=== PATIENT | male | born 1985 | race Caucasian/White ===

== ENCOUNTER 2020-05-05 09:33 | Emergency (ER) | payer MEDICAID, SELFPAY ==
[2020-05-05 09:33] VITALS: BP 152/101; PULSE 85; RESP 16; TEMP 36.6; O2SAT 100; BMI 31.5
--- NOTE | 2020-05-05 09:47 | ED.DCSUM_ITS ---
- ER Visit Summary Date of Service: 05/05/20 Chief Complaint: Facial swelling and dental pain History of Present Illness: The patient is a 34 M who presents with facial swelling and dental pain that became worse since yesterday. Patient states he has been having problems with his right upper molar tooth for the past year. Patient states he was scheduled for a root canal but was unable to have it done. Patient denies any fevers or chills. Patient denies any difficulty swallowing or difficulty breathing. Patient states he attempted to call his dentist today but there was no answer so he came to the emergency department. Physical Examination: Vital signs are stable. Patient is afebrile. Patient is in no acute distress. Oral mucosa is pink and moist. There is a large dental carry noted over the right upper first molar. There is some gingival edema around this tooth. There is some edema of the right maxilla. There is no fluctuance or evidence of any abscess. Neck is supple. Trachea is midline. There is no JVD or lymphadenopathy. There is no sublingual edema or or induration. There is no evidence of José Miguel's angina. Heart was regular rate and rhythm. Lungs are clear and equal bilaterally. Cranial nerves II through XII are intact. There are no focal motor or sensory deficits. Emergency Department Course and Treatment: Patient was given a dose of Pen-Vee K here. Patient was given a prescription for Pen-Vee K. Patient was instructed to take Tylenol or ibuprofen as needed for pain. Patient was instructed to follow-up with his dentist in 5 to 7 days. Patient understood and was agreeable with the plan. All questions were answered. Disposition: Discharge home Impression: Infected dental caries This note was generated with [employer] dictation software. It may contain incorrect words, spelling, and punctuation that were not noted in review of the chart prior to signing ED Disposition - Plan for ED Patient: Disposition: Home or Assisted Living Diagnosis: Infected dental caries Instructions: ED Dental Cavity Prescriptions: Penicillin V Potassium 500 mg PO 4X/DAY #40 tab Prescription Printed Referrals: Dentist,Your [STAFF PHYSICIAN] - 5-7 Days
[2020-05-05] MEDS: Penicillin Vk 250 MG Tablet 500 MG PO (10:01)
== END 2020-05-05 10:02 | disposition home or self-care (01) ==
LOC: ED 10:00
PROVIDERS: Emergency Provider Emergency Medicine
DX: K02.9 Dental caries, unspecified (principal); K04.7 Periapical abscess without sinus; K21.9 Gastro-esophageal reflux disease without esophagitis; Z72.0 Tobacco use
CPT/HCPCS: 99283

== ENCOUNTER 2020-12-02 08:54 | Emergency (ER) | payer MEDICAID, SELFPAY ==
[2020-12-02 08:55] VITALS: BP 160/110; PULSE 85; RESP 14; TEMP 36.9; O2SAT 98; BMI 29.2
--- NOTE | 2020-12-02 09:51 | CT_ITS ---
STUDY: CT BRAIN WITHOUT CONTRAST REASON FOR EXAM: Male, 35 years old. Visual change RADIATION DOSAGE (If Supplied By Facility): CTDIvol = ( 44.99 ) mGy, DLP = ( 779.24 ) mGycm TECHNIQUE: Transaxial CT imaging of the brain was performed without administration of intravenous contrast material. Individualized dose optimization techniques were used for this CT. COMPARISON: No relevant priors. FINDINGS: Normal soft tissue structures. Normal calvarium. Normal size ventricles and extra-axial spaces for the patient''s age. Normal white matter tracts of the cerebral hemispheres. Normal basal ganglia and thalami. Normal brainstem. Normal cerebellum. There is no intracranial hemorrhage. There are no findings of an acute ischemic infarction. Mild mucosal thickening of the maxillary sinuses bilaterally. CT/Brain/Head without Contrast IMPRESSION: Normal unenhanced CT scan of the brain. Electronically Signed: Amado Zuniga MD at 10:24 EDT , Service support ,
--- NOTE | 2020-12-02 09:51 | RAD_ITS ---
STUDY: X-RAY CHEST REASON FOR EXAM: Male, 35 years old. Cough TECHNIQUE: Single AP portable view of the chest. COMPARISON: None. FINDINGS: EKG electrodes are seen. The lungs are clear and expanded. There is no demonstrated pleural abnormality. Normal size heart. Normal mediastinum and emilee. Normal visualized pulmonary arteries. Normal visualized aortic arch and descending thoracic aorta. Normal visualized thoracic spine. Normal visualized ribs, clavicles, and shoulders. There is no demonstrated abnormality of the visualized soft tissue structures of the upper abdomen. RAD/Chest 1 View (Portable) IMPRESSION: Normal x-ray examination of the chest. Electronically Signed: Amado Zuniga MD at 10:26 EDT , Service support ,
--- NOTE | 2020-12-02 09:53 | EKG12_ITS ---
Test Reason : VISION PROB Blood Pressure : / mmHG Vent. Rate : 065 BPM Atrial Rate : 065 BPM P-R Int : 170 ms QRS Dur : 096 ms QT Int : 386 ms P-R-T Axes : 046 048 054 degrees QTc Int : 401 ms Sinus rhythm with marked sinus arrhythmia Otherwise normal ECG When compared with ECG of 12-MAR-2017 12:45, No significant change was found Confirmed by JEANNETTE WEISS, BRITTANY ([id number]), photography editor PRETTY VANEGAS ([id number]) on 12/07/2020 10:19:38 AM Referred By: MARK Confirmed By:BRITTANY MACHADO MD
--- NOTE | 2020-12-02 09:54 | EX.ED.DYSGE1 ---
HPI History of Present Illness Chief Complaint: Vision Prob Informant: patient Onset/Context/Timing Onset: Today Context: Sudden Onset Timing: Intermittent and Lasts (45 minutes) Quality: Blurry, spotty Location: Right peripheral vision Worsened by: Nothing Relieved by: Nothing Narrative Narrative: Patient presents with blurred vision that began today. Patient states the right visual field became blurry while he was at work. Patient states this lasted approximately 45 minutes. Patient states his vision is almost back to normal. Patient states he has some mild blurriness out of his right eye. Patient describes the visual changes as blurry and spotty. Patient states nothing makes it better nothing makes it worse. Patient denies any headaches. Patient does admit to some neck pain. [facility] Medical History (Updated 12/02/20 @ 11:[address] Christo Wolfe DO) Depression Home Medications bupropion HCl 300 mg PO DAILY 12/02/20 [History Last Taken Unknown] Allergy/AdvReac Type Severity Reaction Status Date / Time No Known Allergies Allergy Verified 12/02/20 08:57 Surgical History (Updated 12/02/20 @ 10:[address] Christo Wolfe DO) History of herniorrhaphy Social History Smoking Status: Unknown if ever smoked ROS ROS ED Constitutional Constitutional ED: Denies chills or fever(s) Eyes Eyes: Reports blurry vision; Denies diplopia ENT ENT ED: Denies rhinorrhea or sore throat Cardiovascular Cardiovascular: Denies chest pain or palpitations Respiratory/Chest Respiratory/Chest: Denies cough or dyspnea Gastrointestinal Gastrointestinal: Denies nausea or vomiting Genitourinary Genitourinary ED: Denies dysuria or hematuria Musculoskeletal Musculoskeletal: Reports neck pain; Denies back pain Integumentary Denies abscess or rash Neurologic Neurologic: Denies headache(s) or weakness Allergic/Immunologic Allergic/Immunologic ED: Denies mouth swelling or urticaria EXAM Physical Exam Const Vital Signs: 12/02/20 08:55 Temperature 98.4 F Temperature Source Temporal Pulse Rate 85 Respiratory Rate 14 Blood Pressure 160/110 H Blood Pressure Mean 126 Pulse Ox 98 Oxygen Delivery Method Room Air Positive well nourished and well developed General Appearance ED: well developed HEENT Reports moist mucous membranes Eyes PERRL and EOMs intact bilaterally Neck supple and no JVD Resp normal respiratory effort and clear to auscultation bilaterally Cardio regular rate, regular rhythm and no murmurs GI normal to inspection, nondistended, normoactive bowel sounds and non-tender Palpation: soft Extremity normal to inspection General Extremety ED: Negative for edema or tenderness General Extremity: Negative for edema Neuro oriented x3, CN's II-XII intact bilaterally and no sensory deficits noted [place] Coma Scale: document GCS findings Spontaneous Obeys Commands Oriented 15 Sensorium / Orientation: awake and alert Speech: speech normal Motor Exam: strength 5/5 throughout Psych mental status grossly normal Skin no rashes or lesions noted MDM MDM MDM Narrative Medical decision making narrative: CBC and comprehensive metabolic profile were obtained were within normal limits. PT with INR and PTT were normal. BGT was normal at 91. CT scan of the brain was obtained. There is no acute intracranial abnormality noted. This was interpreted by the radiologist and reviewed by myself. EKG was obtained. On my interpretation, it showed a normal sinus rhythm with a rate of 65. NM interval, QRS interval, and QTc intervals were all normal. Harrell was normal. There are no acute ST or T wave changes. Portable 1 view chest x-ray was obtained. On my interpretation, lung quintanilla are clear. There is normal cardiac silhouette. Bony thorax is normal. There is no acute process noted. Radiologist also interpreted the x-ray and agrees. Patient states his vision has improved. Patient had no further episodes of peripheral vision loss. Patient was advised of his findings. Patient was advised that this could be a TIA. Patient was instructed to follow-up with his primary care physician in 3 to 5 days for further evaluation. Patient understood and was agreeable with the plan. All questions were answered. Lab Data Attestation: I reviewed the patient's lab results. Labs: Laboratory Results - last 24 hr 12/02/20 12/02/20 12/02/20 10:00 10:00 10:00 WBC 5.4 RBC 5.03 Hgb 15.3 Hct 44.2 MCV 87.9 MCH 30.4 MCHC 34.6 RDW Std Deviation 37.5 RDW Coeff of Alfonso 11.7 Plt Count 253 MPV 11.2 Immature Gran % (Auto) 0.200 Neut % (Auto) 57.1 Lymph % (Auto) 22.8 [place] % (Auto) 13.8 H Eos % (Auto) 5.0 Baso % (Auto) 1.1 H Absolute Neuts (auto) 3.1 Absolute Lymphs (auto) 1.22 Nucleated RBC % 0 PT 13.1 INR 1.1 APTT 31.8 Sodium 139 Potassium 3.9 Chloride 107 Carbon Dioxide 28.0 Anion Gap 4 L BUN 11 Creatinine 0.84 Estim Creat Clear Calc 123.91 Est GFR (MDRD) Af Amer 134 Est GFR (MDRD) Non-Af 111 BUN/Creatinine Ratio 13.1 Glucose 100 Calcium 8.7 Total Bilirubin 0.30 AST 21 ALT 49 Alkaline Phosphatase 67 Troponin I High Sens 7 Total Protein 6.9 Albumin 3.8 Globulin 3.1 Albumin/Globulin Ratio 1.2 POC Glucose 12/02/20 10:20 WBC RBC Hgb Hct MCV MCH MCHC RDW Std Deviation RDW Coeff of Alfonso Plt Count MPV Immature Gran % (Auto) Neut % (Auto) Lymph % (Auto) [place] % (Auto) Eos % (Auto) Baso % (Auto) Absolute Neuts (auto) Absolute Lymphs (auto) Nucleated RBC % PT INR APTT Sodium Potassium Chloride Carbon Dioxide Anion Gap BUN Creatinine Estim Creat Clear Calc Est GFR (MDRD) Af Amer Est GFR (MDRD) Non-Af BUN/Creatinine Ratio Glucose Calcium Total Bilirubin AST ALT Alkaline Phosphatase Troponin I High Sens Total Protein Albumin Globulin Albumin/Globulin Ratio POC Glucose 91 Radiography Chest X-Ray - ED: 1 View, Read by ED Physician, Read by Radiologist and Normal Diagnostic Testing: Radiology Impression Brain CT 12/02/20 09:51 IMPRESSION: Normal unenhanced CT scan of the brain. Electronically Signed: Amado Zuniga MD at 10:24 EDT , Service support , Chest X-Ray 12/02/20 09:51 IMPRESSION: Normal x-ray examination of the chest. Electronically Signed: Amado Zuniga MD at 10:26 EDT , Service support , EKG Initial EKG: Attestation: I personally reviewed and interpreted this EKG as follows: Interpretation: Sinus Rhythm (65) and No Acute Injury Pattern Prior EKG tracings: available for review Prior: Unchanged (03/12/2017) Discharge Plan Triage Chief Complaint: Vision Prob ED Provider: Christo Wolfe Dx/Rx/DC Orders Clinical Impression: Brain TIA Instructions: ED TIA: Transient Ischemic Attack Prescriptions: No Action bupropion HCl 300 mg tablet extended release 24 hr 300 mg PO DAILY RF: 0 Primary Care Provider: Care Physician,No Primary Referrals: Fior Young MD [STAFF PHYSICIAN] - 3-5 Days Care Physician,No Primary [Primary Care Provider] - Disposition Disposition: Home, Self Care
[2020-12-02 10:17] LABS: Absolute Lymphocyte Count 1.22 X10^3/uL (0.83-4.51); Absolute Neutrophil Count 3.1 X10^3/uL (2.0-7.7); Basophil# 0.06 X10^3/uL; Basophil% 1.1 % (0-1); Eosinophil# 0.27 X10^3/uL; Hematocrit 44.2 % (40-54); Hemoglobin 15.3 g/dL (13.0-16.5); Lymphocyte # 1.22 X10^3/ul (0.83-4.51); Lymphocyte % 22.8 % (19-41); Mean Corp Hgb Conc 34.6 g/dL (32-36); Mean Corpuscular Hgb 30.4 pg (27.0-32.0); Mean Corpuscular Volume 87.9 fL (80-94); Mean Platelet Vol. 11.2 fl (6.2-12.0); Monocyte# 0.74 X10^3/uL; Monocyte% 13.8 % (0-10); NRBC Flagged by Analyzer 0 % (0-5); Neutrophil # 3.05 X10^3/uL (2.7-7.7); Neutrophil % 57.1 % (47-70); Platelet Count 253 K/mm3 (150-450); RBC Distribution Width CV 11.7 % (11.6-14.6); RBC Distribution Width SD 37.5 fl (35.1-43.9); Red Blood Count 5.03 M/mm3 (4.6-6.2); White Blood Count 5.4 K/mm3 (4.4-11.0)
[2020-12-02 10:25] LABS: Bedside Glucose 91 mg/dL (70-110)
[2020-12-02 10:33] LABS: ALB/GLOB Ratio 1.2 RATIO (0.9-2.4); AST(SGOT) 21 U/L (15-37); Alanine Aminotransfer ALT/SGPT 49 U/L (16-61); Albumin, Serum 3.8 g/dL (3.2-5.0); Alkaline Phosphatase 67 U/L (45-117); Anion Gap 4 (5-15); BUN 11 mg/dL (7-18); BUN/Creat Ratio 13.1 RATIO (10-20); Calcium,Total 8.7 mg/dL (8.5-10.1); Chloride 107 mmol/L (98-107); Creatinine, Serum 0.84 mg/dL (0.70-1.30); EST Glomerular Filtration Rate 111 mL/min (>60); Est Glom Filt Rate - Afr Amer 134 mL/min (>60); Estimated Creatinine Clearance 123.91 ml/min; Globulin 3.1 g/dL (2.2-4.2); Glucose 100 mg/dL (74-106); International Normalized Ratio 1.1; Potassium 3.9 mmol/L (3.5-5.1); Protein, Total 6.9 g/dL (6.4-8.2); Prothrombin Time (Protime)PT. 13.1 SECONDS (11.7-14.9); Sodium Level 139 mmol/L (136-145); Troponin-I HS 7 pg/mL (3.0-78.0)
[2020-12-02 10:34] LABS: Partial Thromboplast Time 31.8 Seconds (24.1-36.2)
[2020-12-02 11:31] VITALS: BP 127/86; PULSE 71; RESP 16; O2SAT 98
== END 2020-12-02 11:31 | disposition home or self-care (01) ==
PROVIDERS: Emergency Provider Emergency Medicine
DX: G45.9 Transient cerebral ischemic attack, unspecified (principal); F32.9 Major depressive disorder, single episode, unspecified; Z79.899 Other long term (current) drug therapy
CPT/HCPCS: 70450; 71045; 80053; 82962; 84484; 85025; 85610; 85730; 93005; 99284; A4216

== ENCOUNTER 2020-12-06 08:04 | Emergency (ER) | payer MEDICAID, SELFPAY ==
[2020-12-06 08:05] VITALS: BP 170/74; PULSE 81; RESP 16; TEMP 36.5; O2SAT 98; BMI 29.5
--- NOTE | 2020-12-06 08:24 | RAD_ITS ---
STUDY: X-RAY CHEST REASON FOR EXAM: Male, 35 years old. Chest pain TECHNIQUE: Single AP portable view of the chest. COMPARISON: 12/02/2020. FINDINGS: The lungs are clear and expanded. There is no demonstrated pleural abnormality. Normal size heart. Normal mediastinum and emilee. Normal visualized pulmonary arteries. Normal visualized aortic arch and descending thoracic aorta. Normal visualized thoracic spine. Normal visualized ribs, clavicles, and shoulders. There is no demonstrated abnormality of the visualized soft tissue structures of the upper abdomen. RAD/Chest 1 View (Portable) IMPRESSION: Normal x-ray examination of the chest. Electronically Signed: Alfonzo Sequeira MD at 9:42 EDT Tel , Service support ,
--- NOTE | 2020-12-06 08:24 | EKG12_ITS ---
Test Reason : CP Blood Pressure : / mmHG Vent. Rate : 080 BPM Atrial Rate : 080 BPM P-R Int : 150 ms QRS Dur : 104 ms QT Int : 368 ms P-R-T Axes : 049 021 069 degrees QTc Int : 424 ms Normal sinus rhythm Normal ECG Confirmed by JEANNETTE WEISS, BRITTANY ([id number]), city editor DAVID MARTINEZ ([id number]) on 12/08/2020 1:41:44 PM Referred By: MOHIT Confirmed By:BRITTANY MACHADO MD
--- NOTE | 2020-12-06 08:24 | ED.VIS.CHEST ---
HPI History of Present Illness Chief Complaint: Chest Pain Informant: patient Onset/Context/Timing Onset: Today Timing: Continuous Quality: Positive for Pressure Location: Substernal Current Severity: Mild Maximum Severity: Moderate Narrative Narrative: Patient presents secondary to chest pain. He states he woke around 630 this morning with chest pressure. Pain is been constant, although it is easing somewhat. Patient was seen here in the ER this past week with TIA symptoms secondary to vision change. Patient states after leaving here he was driving to [place] to take his son to the hospital there when he developed further stroke symptoms including slurred speech and eye droop. He was admitted to [facility] and discharged yesterday with diagnosis of stroke. Patient states throughout his hospital stay he did not have any chest pain or palpitations. Patient does state this morning after taking a shower he felt like he had just run a race, but did not check his pulse to see if it was elevated. [facility] Medical History CVA (cerebral vascular accident) Depression TIA (transient ischemic attack) Home Medications bupropion HCl 300 mg PO DAILY 12/02/20 [History Last Taken Unknown] Allergy/AdvReac Type Severity Reaction Status Date / Time No Known Allergies Allergy Verified 12/06/20 08:07 Surgical History History of herniorrhaphy Social History Smoking Status: Current every day smoker tobacco type: cigarettes ROS ROS ED Constitutional Constitutional ED: Denies chills or fever(s) Eyes Eyes: Reports change in vision ENT ENT ED: Denies sore throat Cardiovascular Cardiovascular: Reports chest pain Respiratory/Chest Respiratory/Chest: Denies cough or dyspnea Gastrointestinal Gastrointestinal: Denies abdominal pain, diarrhea, nausea or vomiting Genitourinary Genitourinary ED: Denies dysuria Musculoskeletal Musculoskeletal: Denies back pain Integumentary Denies rash Neurologic Neurologic: Denies headache(s) or weakness Allergic/Immunologic Allergic/Immunologic ED: Denies urticaria EXAM Physical Exam Const Vital Signs: 12/06/20 08:05 12/06/20 08:40 Temperature 97.7 F L Temperature Source Oral Pulse Rate 81 Respiratory Rate 16 Blood Pressure 170/74 H Blood Pressure Mean 106 Pulse Ox 98 Oxygen Delivery Method Room Air Room Air Positive well nourished and well developed General Appearance ED: well developed HEENT Reports normocephalic and head/scalp atraumatic Eyes PERRL and EOMs intact bilaterally Neck supple Chest Wall inspection of chest normal and palpation of chest normal Resp normal respiratory effort and clear to auscultation bilaterally Cardio regular rate and regular rhythm GI normal to inspection, nondistended, normoactive bowel sounds Palpation: soft Extremity normal to inspection Neuro oriented x3 and no sensory deficits noted Sensorium / Orientation: alert Motor Exam: strength 5/5 throughout Psych mental status grossly normal Skin no rashes or lesions noted Heart Score History: Slightly/Non-Suspicious ECG: Normal Age: </= 45 years Risk Factors: No Risk Factors Troponin: </= Normal Limit Score: 0 MDM MDM MDM Narrative Medical decision making narrative: Patient had taken 1 baby aspirin this morning. He was given 3 additional baby aspirin on arrival. EKG, labs, chest x-ray obtained. Lab Data Attestation: I reviewed the patient's lab results. Labs: Laboratory Results - last 24 hr 12/06/20 12/06/20 12/06/20 08:14 08:14 08:14 WBC 5.9 RBC 5.38 Hgb 16.3 Hct 47.3 MCV 87.9 MCH 30.3 MCHC 34.5 RDW Std Deviation 37.3 RDW Coeff of Alfonso 11.7 Plt Count 230 MPV 11.2 Immature Gran % (Auto) 0.300 Neut % (Auto) 56.6 Lymph % (Auto) 21.5 [place] % (Auto) 14.0 H Eos % (Auto) 6.6 H Baso % (Auto) 1.0 Absolute Neuts (auto) 3.3 Absolute Lymphs (auto) 1.26 Nucleated RBC % 0 D-Dimer Quant (PE/DVT) 0.32 Sodium 139 Potassium 4.1 Chloride 108 H Carbon Dioxide 27.0 Anion Gap 4 L BUN 12 Creatinine 0.83 Estim Creat Clear Calc 125.40 Est GFR (MDRD) Af Amer 136 Est GFR (MDRD) Non-Af 112 BUN/Creatinine Ratio 14.4 Glucose 101 Calcium 9.2 Troponin I High Sens 7 Radiography Chest X-Ray - ED: 1 View, Read by ED Physician, Normal, Heart, Lungs and Mediastinum Diagnostic Testing: Radiology Impression Chest X-Ray 12/06/20 08:24 IMPRESSION: Normal x-ray examination of the chest. Electronically Signed: Alfonzo Sequeira MD at 9:42 EDT Tel , Service support , EKG Initial EKG: Attestation: I personally reviewed and interpreted this EKG as follows: Interpretation: Sinus Rhythm (Sinus 80 with no acute ischemia.) Treatment and Re-Evaluation Comments:: Lab work is unremarkable. EKG reveals no acute ischemia. Portable chest x-ray per my interpretation is normal. Radiologist interpretation is reviewed. On repeat evaluation patient is feeling improved. He is tolerating p.o. without difficulty. I do question as to whether the patient may have cardiac arrhythmia as he did feel like his heart was racing as if he had run a race this morning. I did speak with cardiology and patient be placed on a 48-hour Holter monitor. Return instructions provided. Of note, I did review the patient's records from [facility]. 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 Patient underwent ANA with no evidence of valve abnormality. Discharge Plan Triage Chief Complaint: Chest Pain ED Provider: Rose Mary Clifton Dx/Rx/DC Orders Clinical Impression: Chest pain Instructions: ED Chest Pain, Noncardiac Prescriptions: No Action bupropion HCl 300 mg tablet extended release 24 hr 300 mg PO DAILY RF: 0 Primary Care Provider: Care Physician,No Primary Referrals: Armida Gandara MD [STAFF PHYSICIAN] - 1-2 Weeks Care Physician,No Primary [Primary Care Provider] - Disposition Disposition: Home, Self Care
[2020-12-06 08:32] LABS: Absolute Lymphocyte Count 1.26 X10^3/uL (0.83-4.51); Absolute Neutrophil Count 3.3 X10^3/uL (2.0-7.7); Basophil# 0.06 X10^3/uL; Eosinophil# 0.39 X10^3/uL; Eosinophils% 6.6 % (0-5); Hematocrit 47.3 % (40-54); Hemoglobin 16.3 g/dL (13.0-16.5); Lymphocyte # 1.26 X10^3/ul (0.83-4.51); Lymphocyte % 21.5 % (19-41); Mean Corp Hgb Conc 34.5 g/dL (32-36); Mean Corpuscular Hgb 30.3 pg (27.0-32.0); Mean Corpuscular Volume 87.9 fL (80-94); Mean Platelet Vol. 11.2 fl (6.2-12.0); Monocyte# 0.82 X10^3/uL; NRBC Flagged by Analyzer 0 % (0-5); Neutrophil # 3.32 X10^3/uL (2.7-7.7); Neutrophil % 56.6 % (47-70); Platelet Count 230 K/mm3 (150-450); RBC Distribution Width CV 11.7 % (11.6-14.6); RBC Distribution Width SD 37.3 fl (35.1-43.9); Red Blood Count 5.38 M/mm3 (4.6-6.2); White Blood Count 5.9 K/mm3 (4.4-11.0)
[2020-12-06 08:39] LABS: D-Dimer Quantitative (DVT/PE) 0.32 FEU/ug/m (0.27-0.49)
[2020-12-06 08:45] LABS: Anion Gap 4 (5-15); BUN 12 mg/dL (7-18); BUN/Creat Ratio 14.4 RATIO (10-20); Calcium,Total 9.2 mg/dL (8.5-10.1); Chloride 108 mmol/L (98-107); Creatinine, Serum 0.83 mg/dL (0.70-1.30); EST Glomerular Filtration Rate 112 mL/min (>60); Est Glom Filt Rate - Afr Amer 136 mL/min (>60); Glucose 101 mg/dL (74-106); Potassium 4.1 mmol/L (3.5-5.1); Sodium Level 139 mmol/L (136-145); Troponin-I HS 7 pg/mL (3.0-78.0)
[2020-12-06] MEDS: Aspirin 81 MG TAB.CHEW 243 MG PO (08:47)
[2020-12-06 11:36] VITALS: BP 132/97; PULSE 99; RESP 14; O2SAT 98
== END 2020-12-06 11:42 | disposition home or self-care (01) ==
PROVIDERS: Emergency Provider Emergency Medicine
DX: R07.89 Other chest pain (principal); F17.210 Nicotine dependence, cigarettes, uncomplicated
CPT/HCPCS: 71045; 80048; 84484; 85025; 85379; 93005; 93225; 93226; 99284; A4216

== ENCOUNTER → 2020-12-06 11:10 | Outpatient (CLI) | payer MEDICAID, SELFPAY | PROVIDERS: Visit Provider Internal Medicine Interventional Cardiology | DX: R07.9 Chest pain, unspecified (principal); Z86.73 Personal history of transient ischemic attack (TIA), and cerebral infarction without residual deficits | CPT/HCPCS: 93225; 93226 ==

== ENCOUNTER → 2020-12-24 11:08 | Outpatient (CLI) | payer MEDICAID, SELFPAY ==
--- NOTE | 2020-12-24 18:17 | STRESSREP ---
Stress Test Report Date: 12-24-2020 Procedure: Exercise tolerance test Indications: Chest pain Consent: Per the patient Procedure: The patient exercised on a Justin protocol for 9 minutes and 26 seconds completing Stage III and 26 seconds of Stage IV achieving a peak heart rate of 164 bpm (88% predicted maximal heart rate) with a peak blood pressure 164/80 mmHg and a peak MET capacity of approximately 11 MET's. The baseline ECG demonstrated normal sinus rhythm. The peak exercise ECG demonstrated no obvious ECG changes. There was an isolated PVC during exercise and recovery. The functional capacity was considered good. The patient had no complaint of chest discomfort during exercise or recovery. The examination was discontinued secondary to dyspnea; leg fatigue. Impression: 1. Technically adequate (percent predicted maximal heart rate greater than 85%) exercise tolerance test 2. Peak exercise ECG with no obvious ECG changes 3. There was an isolated PVC during exercise and recovery This note was generated with [employer] software. It may contain incorrect words, spelling, and punctuation that were not noted in checking the note before signing.
== END ==
PROVIDERS: Referring Provider Internal Medicine Cardiovascular Disease; Visit Provider Internal Medicine Cardiovascular Disease
DX: R07.9 Chest pain, unspecified (principal)
CPT/HCPCS: 93017